=== PATIENT | male | born 1985 | race Caucasian/White ===

== ENCOUNTER 2018-03-08 09:22 | Emergency (ER) | payer BC ==
[2018-03-08] MEDS ORDERED: Ketorolac Tromethamine 30 MG/ML VIAL ONE (09:43)
[2018-03-08 10:07] LABS: #Basophils 0.1 thou/uL (0.0-0.2); #Lymphocytes 0.7 thou/uL (1.20-3.40); #Monocytes 1.1 thou/uL (0.11-0.59); #Neutrophils 13.5 thou/uL (1.40-6.50); %Basophils 0.5 % (0.0-1.0); %Eosinophils 0.1 % (0.0-10.0); %Lymphocytes 4.6 % (21.0-51.0); %Monocytes 7.3 % (0.0-10.0); %Neutrophils 87.5 % (42.0-75.0); Anion Gap 14 mmol/L (10-20); BUN (Urea Nitrogen) 13 mg/dL (8.9-20.6); Calc. Creatinine Clearance 0 mL/min (70-130); Calcium 9.5 mg/dL (7.8-10.44); Carbon Dioxide 22 mmol/L (22-29); Chloride 106 mmol/L (98-107); Estimated GFR-MDRD 88; Glucose 172 mg/dL (70-105); Hemoglobin 15.9 g/dL (14.0-18.0); Mean Corpuscular HGB CONC 36.6 g/dL (32.0-36.0); Mean Corpuscular Hemoglobin 32.3 pg (27.0-31.0); Mean Corpuscular Volume 88.1 fL (78.0-98.0); Mean Platelet Volume 6.1 fL (7.4-10.4); Platelet Count 248 thou/uL (130-400); Potassium 3.9 mmol/L (3.5-5.1); RBC Distribution Width 10.2 % (11.5-14.5); Red Blood Cell (RBC) Count 4.93 mill/uL (4.70-6.10); Sodium 138 mmol/L (136-145); White Blood Cell (WBC) Count 15.5 thou/uL (4.8-10.8)
[2018-03-08] MEDS ORDERED: Lidocaine 2% 10 ML INJ ONE (10:11)
[2018-03-08] MEDS ORDERED: Lidocaine 1% PF 5 ML VIAL ONE (10:12)
[2018-03-08 11:57] LABS: Color Of CSF Supernatant COLORLESS (Colorless); Tube # 2; Unspun CSF Color COLORLESS (Colorless)
[2018-03-08 11:59] LABS: CSF, Glucose 69 mg/dl (40-70); CSF, Protein 30 mg/dL (15-40)
[2018-03-08 12:37] LABS: CSF Source CSF
[2018-03-08 12:38] LABS: Clarity Clear (Clear); RBC Count - Manual 1625 /cumm (None Seen)
[2018-03-08 12:43] LABS: WBC/NonHematics Count - Manual 0 /cumm (0-5)
[2018-03-08 12:56] LABS: CSF Source CSF; Clarity Clear (Clear); RBC Count - Manual 36 /cumm (None Seen); Tube # 4; WBC/NonHematics Count - Manual 0 /cumm (0-5)
== END 2018-03-08 13:10 | disposition home or self-care (01) ==
LOC: SCSER 09:22
DX: B34.9 Viral infection, unspecified (principal); K21.9 Gastro-esophageal reflux disease without esophagitis; Z79.899 Other long term (current) drug therapy
CPT/HCPCS: 62270; 80048; 82945; 84157; 85025; 86140; 87070; 87081; 87205; 87430; 89051; 96372; J1885; J2001

== ENCOUNTER 2018-09-11 06:35 | Outpatient (CLI) | payer BC ==
[2018-09-11 16:19] LABS: Hemoglobin 16.2 g/dL (14.0-18.0); Mean Corpuscular HGB CONC 35.1 g/dL (32.0-36.0); Mean Corpuscular Hemoglobin 32.1 pg (27.0-31.0); Mean Corpuscular Volume 91.4 fL (78.0-98.0); Mean Platelet Volume 6.1 fL (7.4-10.4); Platelet Count 378 thou/uL (130-400); RBC Distribution Width 11.2 % (11.5-14.5); Red Blood Cell (RBC) Count 5.04 mill/uL (4.70-6.10); White Blood Cell (WBC) Count 8.5 thou/uL (4.8-10.8)
[2018-09-11 16:26] LABS: Bilirubin Negative (Negative); Blood, Urine Trace (Negative); Clarity CLEAR (Clear); Glucose, Urine (Dipstick) Negative (Negative); Leukocyte Negative (Negative); Nitrite Negative (Negative); Protein, Urine (Dipstick) Negative (Neg-Trace); Prothrombin Time 12.8 SEC (12.0-14.7); Specific Gravity, Urine 1.032 (1.002-1.036); Urobilinogen 0.2 mg/dL (0.2-1.0); pH, Urine 5.5 (5.0-9.0)
[2018-09-11 16:29] LABS: Bacteria/HPF None Seen HPF (None Seen); Hyaline Casts/LPF 0-3 HYALINE CAST LPF (0-3 Hyaline); Pathc Cast-AUWi Flag 0.14 (0-2.49); Squamous Epithelial 0-3 HPF (0-3); WBC/HPF 0-3 HPF (0-3)
[2018-09-11 16:45] LABS: Anion Gap 12 mmol/L (10-20); BUN (Urea Nitrogen) 21 mg/dL (8.9-20.6); Calc. Creatinine Clearance 0 mL/min (70-130); Calcium 9.7 mg/dL (7.8-10.44); Carbon Dioxide 25 mmol/L (22-29); Chloride 103 mmol/L (98-107); Estimated GFR-MDRD 50; Glucose 111 mg/dL (70-105); Sodium 136 mmol/L (136-145)
== END 2018-09-11 06:36 | disposition home or self-care (01) ==
LOC: LABBT 06:35
PROVIDERS: ATTEND Urology
DX: Z01.812 Encounter for preprocedural laboratory examination (principal); N20.0 Calculus of kidney
CPT/HCPCS: 80048; 81001; 85027; 85610; 85730; 87086

== ENCOUNTER 2018-09-17 06:33 | Day surgery (SDC) | payer BC ==
[2018-09-11 15:31] VITALS: BMI 27.3
[2018-09-17] MEDS ORDERED: Levofloxacin 500 mg/D5W 100 ml Premix Bag ONE (07:33)
[2018-09-17] MEDS ORDERED: Fentanyl 100 MCG/2 ML VIAL ONE ×2 (08:31)
[2018-09-17] MEDS ORDERED: Phenazopyridine HCl 97.5 MG TABLET ONE ×2 (10:24→10:25)
[2018-09-17] MEDS ORDERED: Promethazine HCl 25 MG/ML VIAL IM/IV PRN (10:31)
[2018-09-17] MEDS ORDERED: Ondansetron HCl/PF 4 MG/2 ML Vial IVP PRN (10:31)
[2018-09-17] MEDS ORDERED: Non-Formulary Medication 1 EACH PO PRN (10:31)
--- NOTE | 2018-09-17 10:42 | OP ---
DATE OF PROCEDURE: 09/17/2018 SERVICE: Urology. PREOPERATIVE DIAGNOSIS: Left ureteropelvic junction stone. POSTOPERATIVE DIAGNOSIS: Left ureteropelvic junction stone. PROCEDURES PERFORMED: Left ureteroscopy, laser lithotripsy, basket extraction of stone, and placement of 6 x 26 double-J stent. INDICATION FOR PROCEDURE: Mr. Redmond is a 33-year-old white male, who presented with left flank pain. CT demonstrated a 9-mm left UPJ stone. I recommended ureteroscopy and laser lithotripsy with removal of all stone fragments. With all risks and benefits discussed, he has agreed to proceed for. DESCRIPTION OF PROCEDURE: After identification of arm band and verification of consent, the patient was brought back to the operating room, where he underwent general anesthesia with endotracheal intubation. He was then placed in dorsal lithotomy position, and prepped and draped in the usual sterile fashion. After appropriate time-out, a lubricated 22-[place]ian rigid cystoscope was introduced per urethra into the bladder and attention turned to the left ureteral orifice. Of note, there was a thin flimsy bulbar urethral stricture present, which was able to be navigated past with minimal effort using the rigid cystoscope. The left ureteral orifice was intubated with a 0.035 Sensor wire up to the level of the renal pelvis. The stone was visible on fluoro and the wire was able to be navigated past the stone into the renal pelvis. The cystoscope was then removed leaving the Sensor wire in place. A dual-lumen catheter was advanced over the Sensor wire up to the level of the proximal ureter, distal to the stone, and an Amplatz Super Stiff wire was then placed through the second lumen up to the level of the stone. The superstiff wire could not be navigated past the stone, so it was left coiled just proximal to the stone and the dual-lumen removed. An 11/13 x 36 cm ureteral access sheath was advanced over the Super Stiff wire up to the level of the proximal ureter, proximal to the stone, and the inner cannula and Super Stiff wire were then removed leaving the outer sheath and Sensor wire in place as a safety wire. A flexible digital ureteroscope was then passed through the ureteral access sheath to the level of the proximal ureter, where the stone was encountered and embedded in the proximal ureter near the UPJ. A 200 micron laser fiber was then used to fragment the stone into small pieces using the dusting type setting and once the stone was totally fragmented, a 1.9-Jordanian ZeroTip Nitinol basket was used to basket out any remaining stone fragments. All the stone fragments were blown into the kidney, where a full pyeloscopy was performed and any stone fragments seen over 1 to 2 mm in size was basketed out. Upon completion, all stone fragments remaining were approximately 1 mm or less, and there were very few of these left. The kidney was extremely hydronephrotic. Pull-back ureteroscopy was then employed, and no additional stones were seen within the ureter. The area, where the stone was imbedded, had significant friability and edema of the mucosa, so I did feel that stenting for two weeks would be appropriate to avoid ureteral stricture formation and potential swelling and re-obstruction. The ureteroscope and sheath were then removed and the cystoscope was then backloaded over the Sensor wire back in the bladder. A 6 x 26 double-J stent was advanced over the Sensor wire up to the level of the renal pelvis, and the wire was removed leaving a good curl in the kidney and good curl in the bladder. The bladder was then emptied and the cystoscope removed. The patient was then awakened, taken to PACU for recovery in stable condition. COMPLICATIONS: None. ESTIMATED BLOOD LOSS: Minimal. RETAINED TUBES AND DRAINS: A 6 x 26 double-J stent on the left. SPECIMEN: Stone for stone analysis. DISPOSITION: The patient will be discharged home and follow up with me in approximately two weeks for cysto stent removal. Job ID: [id number]
[2018-09-17] MEDS ORDERED: Dexamethasone 20 MG/5 ML VIAL ONE (14:55)
[2018-09-17] MEDS ORDERED: Glycopyrrolate 0.2 MG/ML 5 ML SYRINGE ONE (14:55)
[2018-09-17] MEDS ORDERED: PROPOFOL 200 MG/20 ML VIAL ONE (14:55)
[2018-09-17] MEDS ORDERED: Ondansetron PF 4 MG/2 ML Vial ONE (14:55)
[2018-09-22 14:22] LABS: CA Oxalate Dihydrate 60 % (.); CA Oxalate Monohydrate 30 % (.); CA Phosphate 10 % (.); Color Tan (.)
== END 2018-09-17 11:45 | disposition home or self-care (01) ==
LOC: SDC 06:33
PROVIDERS: ATTEND Urology
PROC: 0T778DZ Dilation of Left Ureter with Intraluminal Device, Via Natural or Artificial Opening Endoscopic (ICD-10-PCS; principal; 2018-09-17)
PROC: 0TF78ZZ Fragmentation in Left Ureter, Via Natural or Artificial Opening Endoscopic (ICD-10-PCS; principal; 2018-09-17)
DX: N13.2 Hydronephrosis with renal and ureteral calculous obstruction (principal); N35.912 Unspecified bulbous urethral stricture, male; K21.9 Gastro-esophageal reflux disease without esophagitis; Z79.899 Other long term (current) drug therapy
CPT/HCPCS: 76000; 82365; 88300; C1758; C1769; J0131; J1100; J1956; J2405; J2704; J3010

== ENCOUNTER 2018-11-23 14:41 | Outpatient (CLI) | payer BC ==
--- NOTE | 2018-11-23 16:18 | ULT ---
BILATERAL RENAL ULTRASOUND: HISTORY: Nephrolithiasis. COMPARISON: 02/07/2015 TECHNIQUE: Sagittal and transverse imaging of the kidneys is performed. FINDINGS: Bilaterally, no hydronephrosis. Bilateral renal cortical echotexture is appropriate and symmetric. The right kidney measures 10.8 x 5.3 x 6.1 cm. The left kidney measures 4.6 x 6.3 x 10.2 cm. Bladder volume is 166 mL. IMPRESSION: 1. No hydronephrosis. 2. No sonographic evidence of renal calculi. POS: [facility]
== END 2018-11-23 14:42 | disposition home or self-care (01) ==
LOC: BICULT 14:41
PROVIDERS: ATTEND Urology
DX: N20.0 Calculus of kidney (principal)
CPT/HCPCS: 76770

== ENCOUNTER 2019-08-13 12:35 | Outpatient (CLI) | payer BC ==
--- NOTE | 2019-08-13 12:58 | ULT ---
US Renal Bilateral STANDARD: 08/13/2019 12:00 AM CLINICAL HISTORY: Kidney stones. STUDY: Renal ultrasound COMPARISON: None. FINDINGS: Right kidney: Echogenicity: Normal. Masses/cysts: None. Hydronephrosis: None. Calcifications: None. Length: 10.8 cm Left kidney: Echogenicity: Normal. Masses/cysts: None. Hydronephrosis: None. Calcifications: None. Length: 11.4 cm Limited visualization of the urinary bladder is unremarkable. IMPRESSION: Unremarkable renal ultrasound
== END 2019-08-13 12:36 | disposition home or self-care (01) ==
LOC: BICULT 12:35
PROVIDERS: ATTEND Urology
DX: N20.0 Calculus of kidney (principal)
CPT/HCPCS: 76770

== ENCOUNTER 2020-11-17 08:38 | Outpatient (CLI) | payer BC | END 2020-11-17 08:39 | disposition home or self-care (01) | LOC: BICULT 08:38 | PROVIDERS: ATTEND Urology | DX: N20.0 Calculus of kidney (principal) | CPT/HCPCS: 76770 ==